=== PATIENT | female | born 1975 | race Caucasian/White ===

== ENCOUNTER 2023-08-16 09:51 | Emergency (ER) | payer BC, SELFPAY ==
[2023-08-16 09:51] VITALS: BMI 33.6
[2023-08-16 09:57] VITALS: BP 149/97
[2023-08-16] MEDS: REGLAN 10 MG IV (11:37)
[2023-08-16] MEDS: TORADOL 15 MG IV (11:37)
--- NOTE | 2023-08-16 11:41 | ED.GENMED ---
History of Present Illness
General
Chief Complaint: Headache
Time Seen by Provider: 08/16/23 10:20
Travel History
Have you had any contact with someone who has COVID-19?: No
Do you have any symptoms of coronavirus? Fever > 100 degrees, chills, cough, shortness of breath, sore throat, loss of taste or smell, muscle aches, or headache?: No
History of Present Illness
History of Present Illness:
47-year-old female with history of hypothyroidism presents to the emergency department for evaluation of bilateral arm numbness and facial burning, occurring intermittently over the past week. Today she felt foggy with a headache as well as
nauseated prompting her to come to the emergency department. She saw her PCP last week for the symptoms and was scheduled for an outpatient EMG as well as cervical x-rays. She denies any neck pain at this time. No chest pain or shortness of
breath.
Past History
Past History
ED Past Medical History: None
ED Past Surgical History: None
Social History
Tobacco: Non-smoker
Alcohol: None
Drug: None
Living: with family
Employment: Employed
Review of Systems
Review of Systems
Allergies reviewed?: Yes
All Other Systems: ROS reviewed and negative except as documented in HPI and ROS
Phy Exam
Physical Exam
Physical Exam:
GEN: Well appearing, NAD, WDWN
HEENT: Oral mucosa moist, no scleral icterus, no nasal congestion
Cardiac: Regular rate and rhythm, no murmurs
Lung: No respiratory distress, no tachypnea
MSK: No gross deformity or injuries
Skin: Good color, no pallor or jaundice, no rashes
Neuro: AO x3; CN II-XII grossly intact. BUE strength 5/5 in all [place], sensation intact and symmetric. BLE strength 5/5 in all [place], sensation intact and symmetric. Patient notes hyperesthesia to the upper extremities and torso, no similar
symptoms to the legs
Psych: Calm, cooperative
Course
Orders/Labs/Results
Orders:
Orders
08/16/23 11:31
Electrocardiogram (*1) Urgent
Reason for Study: QTc Monitoring
EKG- Treatment ONCE
08/16/23 11:32
Ketorolac [Toradol] 15 mg IV NOW STA
Metoclopramide [Reglan] 10 mg IV NOW STA
08/16/23 11:38
Complete Blood Count/With Diff Urgent
Comprehensive Metabolic Panel Urgent
Abnormal Lab Results
08/16/23
11:38
Hct 36.5 L %
(37.0-47.0)
MPV 10.7 H fL
(7.4-10.4)
08/16/23 11:38
08/16/23 11:38
Vital Signs
Initial and Last Documented VS:
Initial Vital Signs
Temp Pulse Resp BP Pulse Ox
98.7 F 90 18 149/97 99
08/16/23 09:57 08/16/23 09:57 08/16/23 09:57 08/16/23 09:57 08/16/23 09:57
Last Documented Vital Signs
Temp Pulse Resp BP Pulse Ox
98.7 F 79 15 115/72 97
08/16/23 09:57 08/16/23 13:00 08/16/23 13:00 08/16/23 13:00 08/16/23 13:00
MDM/Problems Addressed
MDM/Problems Addressed:
47-year-old female presenting with headache and widespread paresthesias. She has no focal neurologic deficits. Her primary care physician has established a workup for her to evaluate for cervical radiculopathy. I did treat her with NSAIDs and
migraine cocktail which did improve the symptoms for the most part. No indication for neuroimaging. Recommend continued outpatient follow-up, labs are reassuring
Comment
Comment:
EKG independently interpreted by me shows normal sinus rhythm at a rate of 69 with some patient motion artifact, no ST changes concerning for ischemia
*Critical Care Note
Total Time (30-74mins, 75-104mins- exclusive of procedures): Not Applicable
ED Attending Note
-
Portions of this chart may have been created with voice recognition software.� Occasional wrong word or��sound alike� substitutions may have occurred due to the inherent limitations of voice recognition software.
Discharge Plan
Departure
Patient Disposition: Home (Routine Discharge)
Date of Disposition: 08/16/23
Time of Disposition: 12:56
Patient with high blood pressure during this ER visit?: No
Discharge Problem:
Paresthesia, Headache
Instructions: Paresthesia (DC)
Prescriptions:
No Action
ondansetron 4 mg tablet,disintegrating
4 mg PO TID PRN (Reason: nausea and vomiting) 4 Days Qty: 12 0RF
pantoprazole [Protonix] 40 mg tablet,delayed release (DR/EC)
40 mg PO DAILY Qty: 30 0RF
Referrals:
May Garcia CRNP [Family Provider] -
Activity Restrictions/Additional Instructions:
Continue with the plan to obtain an EMG
See your primary doctor within 1-2 weeks
Interventions
Interventions:
*Risk Screen - Suicide Last Done: 08/16/23 11:47
*General Assessment Last Done: 08/16/23 11:47
*Neglect/Abuse Screening Last Done: 08/16/23 11:47
ED- Fall Risk Assessment Last Done: 08/16/23 11:47
*ED COVID-19 Vaccine History Last Done: 08/16/23 09:57
*Nursing Disposition Last Done: 08/16/23 13:17
ED- Neurological Assessment Last Done: 08/16/23 11:47
Discharge Date and Time
Discharge Date/Time: 08/16/23 13:30
Print Language: HUNGARIAN
[2023-08-16 11:44] VITALS: BP 118/70
[2023-08-16 12:00] VITALS: BP 119/73
[2023-08-16 12:01] LABS: % Basophils 0.7 % (0-2); % Eosinophils 2.4 % (0-6); % Immature Granulocytes 0.4 % (0-0.5); % Lymphocytes 30.1 % (20.5-51.1); % Monocytes 6.5 % (1.7-9.3); % Neutrophils 59.9 % (42.2-75.2); Absolute Eosinophils 0.1 10^3/uL (0-0.7); Absolute Lymphocytes 1.7 10^3/uL (1.2-3.4); Absolute Monocytes 0.4 10^3/uL (0.1-0.6); Absolute Neutrophils 3.3 10^3/uL (1.4-6.5); Hematocrit 36.5 % (37.0-47.0); Mean Corp Hgb Conc. 35.6 g/dL (33.0-37.0); Mean Corpuscular Hgb 30.7 pg (27.0-31.0); Mean Corpuscular Volume 86.3 fL (81.0-99.0); Mean Platelet Volume 10.7 fL (7.4-10.4); Nucleated Red Blood Cells % 0 %; Platelet Count 253 10^3/uL (130-400); Red Blood Cell Count 4.23 10^6/uL (4.20-5.40); Red Cell Dist. Width 11.7 % (11.5-14.5); White Blood Cell Count 5.5 10^3/uL (4.8-10.8)
[2023-08-16 12:14] LABS: ALT (SGPT) 23 U/L (0-35); AST (SGOT) 27 U/L (14-36); Albumin 4.2 g/dl (3.5-5.0); Alkaline Phosphatase 51 U/L (38-126); Blood Urea Nitrogen 9 mg/dl (7-17); Calcium 9.4 mg/dl (8.4-10.2); Carbon Dioxide 25 mmol/L (22-30); Chloride 103 mmol/L (98-107); Estimated Creatinine Clearance > 125 ml/min; Glucose 98 mg/dl (70-99); Potassium 4.1 mmol/L (3.5-5.1); Sodium 136 mmol/L (135-145); Total Bilirubin 1.3 mg/dl (0.2-1.3); eGFR > 60.00
[2023-08-16 13:00] VITALS: BP 115/72
== END 2023-08-16 13:30 | disposition home or self-care (01) ==
LOC: EMR 09:51
PROVIDERS: Physician Assistant; EMERGENCY PHYSICIAN Emergency Medicine; FAMILY PHYSICIAN Nurse Practitioner Adult Health
DX: R51.9 Headache, unspecified (principal); R20.2 Paresthesia of skin; R20.0 Anesthesia of skin; R11.0 Nausea
CPT/HCPCS: 99284; 96374; 96375; 80053; 85025; 93005